=== PATIENT | male | born 1965 | race Caucasian/White ===

== ENCOUNTER 2020-07-07 12:47 | Emergency (ER) | payer SELFPAY ==
--- NOTE | 2020-07-07 12:57 | PDOC ---
Rapid Medical Evaluation Time Seen by Provider: 07/07/20 12:49 Medical Evaluation: 07/07/20 12:55 I have performed a brief in-person evaluation of this patient. CC: sent from for mass to left popliteal PE: soft mobile painless growth to left popliteal. No calf tenderness Orders: sono Patient to proceed to ED for further evaluation. Discharge Disposition - Diagnosis Knee mass - Referrals - Patient Instructions - Post Discharge Activity
[2020-07-07 13:00] VITALS: BMI 27.4
--- NOTE | 2020-07-07 13:20 | PDOC ---
History of Present Illness <Leola Cardenas - Last Filed: 07/07/20 15:23> - History of Present Illness Initial Comments: 07/07/20 13:20 54 M with HTN presented to the ED with 6 months of "tingling sensation on the left upper and lower extremities and he noted a mass behind the left knee on going for the past 6 months. He reported that his symptoms started acutely and he woke up with them in december. He didn't seek care prior to his visit because he was concern for covid risk. He denies injury/trauma/fall/ being on the knees often in around that month. He went to the urgent care, and they sent him over here. He denies headache, ataxia, change of vision, change of voices, N/V/D , fever, chills, chest pain, abdominal pain, unilat calves swelling, urinary incontinence, bowel incontinence. PMHX: as in HPI, right knee arthritis (20 years ago). PSHX: none Meds: none Allergies: none Tob: 2 cigs for 20 years. Etoh: none Rec drugs: none PCP: none ROS GENERAL/CONSTITUTIONAL: No fever or chills. No weakness. HEAD, EYES, EARS, NOSE AND THROAT: No change in vision. No ear pain or discharge. No sore throat. CARDIOVASCULAR: No chest pain or shortness of breath RESPIRATORY: No cough, wheezing, or hemoptysis. GASTROINTESTINAL: No nausea, vomiting, diarrhea or constipation. GENITOURINARY: No dysuria, frequency, or change in urination. MUSCULOSKELETAL: +left Knee mass. No neck or back pain. SKIN: No rash NEUROLOGIC: No headache, vertigo, loss of consciousness, +tingling on the left upper and lower extremities. ENDOCRINE: No increased thirst. No abnormal weight change HEMATOLOGIC/LYMPHATIC: No anemia, easy bleeding, or history of blood clots. ALLERGIC/IMMUNOLOGIC: No hives or skin allergy. PE. HTN 170s/80s GENERAL: Awake, alert, and fully oriented, in no acute distress HEAD: No signs of trauma, normocephalic, atraumatic EYES: PERRLA, EOMI, sclera anicteric, conjunctiva clear ENT: Auricles normal inspection, hearing grossly normal, nares patent, oropharynx clear without. No midline tenderness. exudates. Moist mucosa NECK: Normal ROM, supple, no lymphadenopathy, JVD, or masses LUNGS: No distress, speaks full sentences, clear to auscultation bilaterally HEART: Regular rate and rhythm, normal S1 and S2, no murmurs, rubs or gallops, peripheral pulses normal and equal bilaterally. ABDOMEN: Soft, nontender, normoactive bowel sounds. No guarding, no rebound. No masses EXTREMITIES : Normal inspection, Normal range of motion. left soft moveable 3cm mass on popelitial fossa. +pulses appreciated throughout. No tenderness upon palpation. +left leg raise induced tingling. SKIN: Warm, Dry, normal turgor, no rashes or lesions noted NEUROLOGICAL: Cranial nerves II through XII grossly intact. Normal speech, normal gait, no focal sensorimotor deficits Mental status: The patient is alert, attentive, and oriented. Speech is clear and fluent with good repetition, comprehension, and naming. He recalls 3/3 objects at 5 minutes. Motor: There is no pronator drift of out-stretched arms. Muscle bulk and tone are normal. Strength is full bilaterally. Deltoid Biceps Triceps Wrist extension Finger abduction Hip flexion Hip extension Knee flexion Knee extension Ankle flexion Ankle extension L 5 5 5 5 5 5 5 5 5 5 5 R 5 5 5 5 5 5 5 5 5 5 5 Reflexes: Reflexes are 2+ and symmetric at the biceps, triceps, knees, and ankles. Plantar responses are flexor. Sensory: Light touch, pinprick, position sense, and vibration sense are intact in fingers and toes. Coordination: Rapid alternating movements and fine finger movements are intact. There is no dysmetria on [id number] and [id number]-[id number]. There are no abnormal or extraneous movements. Romberg is absent. Gait/Stance: Posture is normal. Gait is steady with compensated steps (due to right knee arthritis) base, arm swing, and turning. Heel and toe walking are normal. Tandem gait is normal when the patient closes one of her eyes. 07/07/20 16:24 <Narinder Houston - Last Filed: 07/07/20 16:29> - General Chief Complaint: Pain, Acute Stated Complaint: SENT BY DOC Time Seen by Provider: 07/07/20 12:49 Past History <Leola Cardenas - Last Filed: 07/07/20 15:23> - Medical History COPD: Yes - Psycho-Social/Smoking History Smoking History: Current some day smoker Number of Cigarettes Smoked Daily: 2 Information on smoking cessation initiated: No - Substance Abuse Hx (Audit-C & DAST Scrn) How often the patient has a drink containing alcohol: Monthly or less How often the patient has six or more drinks on one occasion: Daily or almost d aily Score: In Men: 4 or > Positive; In Women: 3 or > Positive: 5 Screen Result (Pos requires Nsg. Audit-10AR): Positive In the last yr the pt used illegal drug/Rx for NonMed reason: Yes Score: Yes response is considered Positive: 1 Screen Result (Positive result requires Nsg. DAST-10): Positive <Narinder Houston - Last Filed: 07/07/20 16:29> - Medical History Allergies/Adverse Reactions: Allergies Allergy/AdvReac Type Severity Reaction Status Date / Time No Known Allergies Allergy Verified 07/07/20 12:55 *Physical Exam - Vital Signs Last Vital Signs Temp Pulse Resp BP Pulse Ox 75 16 173/113 H 100 07/07/20 12:56 07/07/20 12:56 07/07/20 12:56 07/07/20 12:56 <Leola Cardenas - Last Filed: 07/07/20 15:23> - Vital Signs Last Vital Signs Temp Pulse Resp BP Pulse Ox 75 16 173/113 H 100 07/07/20 12:56 07/07/20 12:56 07/07/20 12:56 07/07/20 12:56 <Narinder Houston - Last Filed: 07/07/20 16:29> ED Treatment Course - LABORATORY CBC & Chemistry Diagram: 07/07/20 13:50 07/07/20 13:50 - ADDITIONAL ORDERS Additional order review: Laboratory Results 07/07/20 07/07/20 13:50 13:50 PT with INR 11.50 INR 0.97 Sodium 142 Potassium 3.9 Chloride 106 Carbon Dioxide 25 Anion Gap 11 BUN 21.4 H Creatinine 1.0 Est GFR (CKD-EPI)AfAm 98.46 Est GFR (CKD-EPI)NonAf 84.95 Random Glucose 109 H Calcium 9.3 Total Bilirubin 0.4 AST 20 ALT 26 Alkaline Phosphatase 102 Total Protein 7.2 Albumin 4.2 07/07/20 13:50 RBC 4.66 MCV 93.1 MCHC 34.3 RDW 13.6 MPV 7.3 L Neutrophils % 73.6 Lymphocytes % 15.8 Monocytes % 8.8 Eosinophils % 1.2 Basophils % 0.6 <Leola Cardenas - Last Filed: 07/07/20 15:23> - LABORATORY CBC & Chemistry Diagram: 07/07/20 13:50 07/07/20 13:50 <Narinder Houston - Last Filed: 07/07/20 16:29> Medical Decision Making - Medical Decision Making 07/07/20 14:17 54 M with hx of HTN presented to the ED for paresthesia, and left knee mass. for Left knee mass: Ultrasound to rule out DVT, look for orosco cyst vs ganlionic cyst vs meniscial cyst. For 7 months long paresthesia of the left upper and lower extremities: central vs peripheral cause, will CT scan his head. -draw basic labs to look for electrolyte abnormalities/infection. -EKG. 07/07/20 14:20 Patient most likely will go home with referral to [facility] and neurology follow up. 07/07/20 14:39 Lab came back within normal limit. Ultrasound revealed Orosco cyst, no DVT. CT scan is negative for intracranial breeding. Will call Dr. Rowell neurologist for followup. 07/07/20 15:10 Dr. Rowell was called, and agreed to see him as followup. Will give refer to [facility] for HTN followup and medication. 07/07/20 15:46 Called Kaitlin HINES, Kirk HINES, Janine HINES to set up appointment today, no avail. Called [facility], they accepted him for tomorrow for HTN management. 07/07/20 15:55 Update patient on Ortho doc phone: [phone] Quiles. Called patient cell phone, and left a voice message on [phone]. <Narinder Houston - Last Filed: 07/07/20 16:29> Discharge <Leola Cardenas - Last Filed: 07/07/20 15:23> - Discharge Information Problems reviewed: Yes <Narinder Houston - Last Filed: 07/07/20 16:29> - Discharge Information Clinical Impression/Diagnosis: Numbness and tingling of left arm and leg Knee mass Qualifiers: Laterality: left Qualified Code(s): R22.42 - Localized swelling, mass and lump, left lower limb Bakers cyst Qualifiers: Laterality: left Qualified Code(s): M71.22 - Synovial cyst of popliteal space [Orosco], left knee Condition: Good Disposition: HOME - Follow up/Referral Referrals: [facility] [place] [facility] [place] [Provider Group] José Rowell MD [Staff Physician] - Walter Quiles DO [Staff Physician] - - Patient Discharge Instructions Patient Printed Discharge Instructions: Essential Hypertension, DI for Orosco's Cyst Additional Instructions: You are here today for left knee mass and left sided tingling sensation. You are evaluated for labwork, CT scan of the head, ultrasound of the knee. Your ultrasound showed a cyst in the back of your knee. Please follow up with the court specialist Dr. Quiles within 1-2 weeks for this cyst. We spoke with the neurologist river expedition guide Dr. Rowell for your tingling. Please follow up with him within 1 week for your symptoms. Call today to make the appointment. The information for his office is in this discharge packet. With regards to your elevated blood pressure, we have made an appointment tomorrow at the [facility] at 11:30am as we discussed with you. Please follow up for a remeasurement of your blood pressure and possible initiation of blood pressure medication medications. The information for the clinic is also included in this packet. Please come back to the ED if you have any new, worsening, or concerning symptoms.
[2020-07-07 14:09] LABS: BASO % 0.6 % (0-2.0); EOS % 1.2 % (0-4.5); HEMATOCRIT 43.3 % (35.4-49); HEMOGLOBIN 14.9 GM/dL (11.7-16.9); LYMPH % 15.8 % (8-40); MCH 31.9 pg (25.7-33.7); MCHC 34.3 g/dl (32.0-35.9); MEAN CELL VOLUME 93.1 fl (80-96); MEAN PLT VOLUME 7.3 fl (7.5-11.1); MONO % 8.8 % (3.8-10.2); NEUT % 73.6 % (42.8-82.8); PLATELET COUNT 330 K/MM3 (134-434); RBC 4.66 M/mm3 (4.00-5.60); RDW 13.6 % (11.9-15.9); WHITE BLOOD COUNT 10.5 K/mm3 (4.0-10.0)
[2020-07-07 14:19] LABS: INR 0.97 (0.83-1.09); PROTHROMBIN TIME (PATIENT) 11.5 SEC (9.7-13.0)
[2020-07-07 14:32] LABS: ALBUMIN 4.2 g/dl (3.4-5.0); BILIRUBIN,TOTAL 0.4 mg/dL (0.2-1); BLOOD UREA NITROGEN 21.4 mg/dL (7-18); CALCIUM 9.3 mg/dL (8.5-10.1); POTASSIUM 3.9 mmol/L (3.5-5.1); TOT PROT 7.2 g/dl (6.4-8.2)
--- NOTE | 2020-07-07 14:35 | PDOC ---
Documentation entered by Ramiro Magallon SCRIBE, acting as scribe for Kaitlin Viera MD. Kaitlin Viera MD: This documentation has been prepared by the Sherita mosley Xhesika, SCRIBE, under my direction and personally reviewed by me in its entirety. I confirm that the documentation accurately reflects all work, treatment, procedures, and medical decision making performed by me. Attending Attestation - Resident Resident Name: Narinder Houston - ED Attending Attestation I have performed the following: I have examined & evaluated the patient, The case was reviewed & discussed with the resident, I agree w/resident's findings & plan, Exceptions are as noted - HPI HPI: 07/07/20 13:21 The patient is a 54y/o M with a PMH of COPD and HTN who presents to the ED for L knee mass for 1 month and tingling sensation to his LUE and LLE since Dec 2019. Pt denies any injuries, trauma or falls. Pt was seen at Urgent Care today for symptoms and was advised to come to the ED for further evaluation and imaging. He takes no medications, states he ran out of his BP medications 1 year ago. Denies smoking or drug use. Pt was worried about seeking care since December due to covid outbreak. Pt denies any chest pain, SOB, headache, ataxia, change of vision. Denies any fevers, chill, cough, N/V/D, abd pain. Denies any URI symptoms or urinary incontinence/ bowel incontinence. Denies recent travel or immobility. Allergies: NKDA - Physicial Exam PE: 07/07/20 14:36 GENERAL: Awake, alert, and fully oriented, in no acute distress HEAD: No signs of trauma EYES: PERRLA, EOMI, sclera anicteric, conjunctiva clear ENT: Auricles normal inspection, hearing grossly normal, nares patent, oropharynx clear without exudates. Moist mucosa NECK: Normal ROM, supple, no lymphadenopathy, JVD, or masses LUNGS: Breath sounds equal, clear to auscultation bilaterally. No wheezes, and no crackles HEART: Regular rate and rhythm, normal S1 and S2, no murmurs, rubs or gallops ABDOMEN: Soft, nontender, normoactive bowel sounds. No guarding, no rebound. No masses EXTREMITIES: Left pop fossa with 3cm non-pulsatile, soft, mobile, nontender mass. Otherwise, normal range of motion, no edema. No clubbing or cyanosis. No cords, erythema, or tenderness. 2+ DP pulses b/l NEUROLOGICAL: Normal speech, cranial nerves intact, negative pronator drift, 5/5 strength in all 4 extremities, normal sensation to light touch in all 4 extremities, normal cerebellar exam, normal gait, normal reflexes and tone SKIN: Warm, Dry, normal turgor, no rashes or lesions noted. - Medical Decision Making 07/07/20 14:47 54-year-old male with a history of COPD and hypertension, not currently on medications as he has not followed up with his primary care doctor presents emergency department with 1 month of left popliteal fossa mass and 6 months of left upper and lower extremity tingling. Vitals remarkable for elevated blood pressure, otherwise within normal limits. Exam with mass in the left popliteal fossa, likely Orosco's cyst. Patient is neurologically intact with no deficits on exam. Ultrasound obtained confirms Orosco's cyst. CT head within normal limits, no evidence of previous stroke. Labs within normal limits. With regards to left sided objective tingling sensation, low likelihood to be a stroke as patient is neurologically intact. His electrolytes are within normal limits. He has no infectious symptoms. Plan to discuss with neurology consult and likely have outpatient follow-up for the patient. We will also provide referral for outpatient primary care follow-up given patient's elevated blood pressure on presentation. Will not initiate BP meds in the ED given likely chronically elevated BP. 07/07/20 14:58 With regards to L sided tingling, case and diagnostics discussed with Dr. Rowell who recommends outpt f/u with him within 1 week Rpt BP in the ED w/o intervention 159/98 Appt made with PCP tomorrow @[facility] at 11am for f/u for elevated BP With regards to bakers cyst, pt given f/u ortho Plan discussed with pt who expresses understanding I discussed the physical exam findings, ancillary test results and final diagnoses with the patient. I answered all of the patient's questions. The patient was satisfied with the care received and felt comfortable with the discharge plan and treatment plan. The patient will call their primary care physician within 24 hours to arrange follow-up and will return to the Emergency Department with any new, persistent or worsening symptoms. Discharge - Discharge Information Problems reviewed: Yes Clinical Impression/Diagnosis: Knee mass, Numbness and tingling of left arm and leg Bakers cyst Qualifiers: Laterality: left Qualified Code(s): M71.22 - Synovial cyst of popliteal space [Orosco], left knee Condition: Good Disposition: HOME - Follow up/Referral Referrals: [facility] [place] [facility] at [place] [Provider Group] José Rowell MD [Staff Physician] - Walter Quiles DO [Staff Physician] - - Patient Discharge Instructions Patient Printed Discharge Instructions: Essential Hypertension, DI for Orosco's Cyst Additional Instructions: You are here today for left knee mass and left sided tingling sensation. We did labwork, CT scan of the head, ultrasound of the knee. Your ultrasound showed a cyst in the back of your knee. Please follow up with the collateral specialist Dr. Quiles within 1-2 weeks for this cyst. We spoke with the neurologist information systems operator Dr. Rowell for your tingling. Please follow up with him within 1 week for your symptoms. Call today to make the appointment. The information for his office is in this discharge packet. With regards to your elevated blood pressure, we have made an appointment tomorrow at the [facility] at 11:30am as we discussed with you. Please follow up for a remeasurement of your blood pressure and possible in itiation of blood pressure medication medications. The information for the clinic is also included in this packet. Please come back to the ED if you have any new, worsening, or concerning symptoms. - Post Discharge Activity
[2020-07-07 16:21] VITALS: BP 185/102; PULSE 65; TEMP 98.1
== END 2020-07-07 16:00 | disposition home or self-care (01) ==
LOC: JER 12:47
DX: R22.42 Localized swelling, mass and lump, left lower limb (principal); M71.22 Synovial cyst of popliteal space [Baker], left knee; R20.2 Paresthesia of skin
CPT/HCPCS: 36415; 70450-TC; 80053; 85025; 85610; 93971-TC; 99285-25